=== PATIENT | male | born 1935 | race Caucasian/White ===

== ENCOUNTER 2022-01-02 07:19 | Day surgery (SDC) | payer MEDICARE, BC ==
[2022-01-02] MEDS ORDERED: Sodium Chloride 0.9% 10 ML Syringe FLUSH ONE (08:00)
== END 2022-01-02 08:57 | disposition home or self-care (01) ==
LOC: JP.SDS 07:19
PROVIDERS: ATTEND Ophthalmology
DX: H25.11 Age-related nuclear cataract, right eye (principal); E66.9 Obesity, unspecified; Z68.29 Body mass index [BMI] 29.0-29.9, adult; Z88.6 Allergy status to analgesic agent

== ENCOUNTER 2022-02-06 06:41 | Day surgery (SDC) | payer MEDICARE, BC ==
[2022-02-06] MEDS ORDERED: Sodium Chloride 0.9% 10 ML Syringe FLUSH PRN (07:30)
== END 2022-02-06 08:43 | disposition home or self-care (01) ==
LOC: JP.SDS 06:41
PROVIDERS: ATTEND Ophthalmology
DX: H25.12 Age-related nuclear cataract, left eye (principal); Z88.5 Allergy status to narcotic agent
CPT/HCPCS: V2632